=== PATIENT | male | born 2000 ===

== ENCOUNTER → 2024-12-23 08:15 | Outpatient (BNV) | payer OTHER, SELFPAY | PROVIDERS: Visit Provider Internal Medicine Cardiovascular Disease | DX: R00.0 Tachycardia, unspecified (principal) | CPT/HCPCS: 93244 ==

== ENCOUNTER → 2024-12-23 09:30 | Outpatient (REF) | payer OTHER, SELFPAY | LOC: HO.CARD 09:30 | PROVIDERS: Visit Provider Family Medicine | DX: R42 Dizziness and giddiness (principal) | CPT/HCPCS: 93242 ==